=== PATIENT | female | born 1990 | race Caucasian/White ===

== ENCOUNTER 2018-09-13 23:15 | Outpatient (CLI) | payer MEDICAID ==
[2018-09-14] MEDS: ACETAMINOPHEN 325 MG TAB PO (00:47)
[2018-09-14 01:24] LABS: ADD UMIC YES; UR ASCORBIC ACID NEGATIVE (NEGATIVE); UR BACTERIA MANY /HPF (NONE SEEN); UR BILIRUBIN (Dip) NEGATIVE (NEGATIVE); UR BLOOD (Dip) NEGATIVE (NEGATIVE); UR CLARITY CLOUDY (CLEAR); UR COLOR YELLOW (YELLOW); UR GLUCOSE (Dip) NEGATIVE (NEGATIVE); UR KETONES (Dip) NEGATIVE (NEGATIVE); UR LEUKOCYTE ESTERASE (Dip) 3+ Leu/ul (NEGATIVE); UR NITRITE (Dip) NEGATIVE (NEGATIVE); UR RBC 19 /HPF (0-5); UR SPECIFIC GRAVITY (Dip) 1.012 (1.003-1.030); UR SQUAMOUS EPITHELIAL CELL MANY /HPF (FEW); UR TOTAL PROTEIN (Dip) NEGATIVE (NEGATIVE); UR UROBILINOGEN (Dip) NEGATIVE (NEGATIVE); UR WBC 46 /HPF (0-5)
== END 2018-09-14 03:13 | disposition home or self-care (01) ==
LOC: OBT 23:15 → L-D 23:15 → OBT 09-14 03:13
DX: O9A.312 Physical abuse complicating pregnancy, second trimester (principal); Z3A.25 25 weeks gestation of pregnancy; Y07.03 Male partner, perpetrator of maltreatment and neglect
CPT/HCPCS: 36415; 76815; 76817; 81001; 87591

== ENCOUNTER 2018-12-13 12:35 | Inpatient (IN) | payer MEDICAID ==
[2018-12-13] MEDS ORDERED: MISOPROSTOL 200 MCG TAB PR (14:00)
[2018-12-13] MEDS ORDERED: CARBOPROST 250 MCG INJ IM (14:00)
[2018-12-13] MEDS ORDERED: IBUPROFEN 600 MG TAB PO (14:00)
[2018-12-13] MEDS ORDERED: BUTORPHANOL 2 MG INJ IV (14:00)
[2018-12-13] MEDS ORDERED: OXYTOCIN 30 UNITS/LR 500 ML IV ×2 (14:00)
[2018-12-13] MEDS ORDERED: METHYLERGONOVINE 0.2 MG INJ IM (14:00)
[2018-12-13] MEDS ORDERED: LIDOCAINE 1% (MPF) 30 ML INJ INJ (14:00)
[2018-12-13 14:21] LABS: ADD MAN DIFF? NO
[2018-12-13 14:24] LABS: WHITE BLOOD COUNT 15.2 10^3/ul (4.8-10.8)
[2018-12-13 14:24] LABS: BASOPHILS % 0.3 % (0.0-2.0); EOSINOPHILS # 0.2 10^3/ul (0.0-0.5); EOSINOPHILS % 1.4 % (0.0-7.0); HEMATOCRIT 40.3 % (37.0-47.0); HEMOGLOBIN 13.3 g/dl (12.0-16.0); LYMPHOCYTES % 6.3 % (15.0-51.0); MEAN CORPUSCULAR HEMOGLOBIN 31.4 pg (29.0-33.0); MEAN PLATELET VOLUME 12.6 fl (7.4-10.4); MONOCYTE # 1.4 10^3/ul (0.3-0.9); MONOCYTES % 9.4 % (0.0-11.0); NEUTROPHIL # 12.5 10^3/ul (1.6-7.5); NEUTROPHILS % 81.9 % (39.0-77.0); PLATELET COUNT 203 10^3/UL (140-415); RED BLOOD COUNT 4.24 10^6/ul (4.20-5.40); RED CELL DISTRIBUTION WIDTH 13.5 % (11.5-14.5)
[2018-12-13 14:42] LABS: PARTIAL THROMBOPLASTIN TIME 29.8 Sec (23.0-35.0)
[2018-12-13 14:57] LABS: PROTIME 56.4 Sec (11.9-14.9); PT RATIO 4.4
[2018-12-13] MEDS: LACTATED RINGER'S 1,000 ML IV ×3 (15:03→16:07)
[2018-12-13 15:05] LABS: INR 6.45
[2018-12-13 15:13] LABS: HEPATITIS B SURFACE ANTIGEN NEGATIVE (NEGATIVE)
[2018-12-13] MEDS ORDERED: ZOLPIDEM 5 MG TAB PO (16:30)
[2018-12-13] MEDS ORDERED: ONDANSETRON 4 MG INJ IV (16:30)
[2018-12-13] MEDS ORDERED: HYDROmorphONE 0.5 MG/0.5 ML SYG IV ×2 (16:30)
[2018-12-13] MEDS ORDERED: NALOXONE (0.4 MG/ML) INJ IV (16:30)
[2018-12-13] MEDS ORDERED: KETOROLAC 30 MG INJ IV (16:30)
[2018-12-13] MEDS ORDERED: DIPHENHYDRAMINE 50 MG INJ IV (16:30)
[2018-12-13] MEDS: AMPICILLIN 1 GM/NS (PMX) 50 ML IV (18:00)
[2018-12-13 19:46] LABS: RAPID PLASMA REAGIN NONREACTIVE (NR)
[2018-12-13] MEDS: AMPICILLIN 2 GM/NS (PMX) 100 ML IV (20:19)
[2018-12-13] MEDS: FENTAnyl 2MCG/ML-ROPIV 0.2% 100 ML BAG EPI (22:57)
[2018-12-14] MEDS: OXYTOCIN 30 UNITS/LR 500 ML IV ×2 (02:40→02:56)
[2018-12-14] MEDS: LACTATED RINGER'S 1,000 ML IV* (02:40)
[2018-12-14] MEDS ORDERED: WITCH HAZEL/GLYCERIN PAD PR (03:00)
[2018-12-14] MEDS ORDERED: HYDROCODONE/APAP (5/325) TAB PO (03:00)
[2018-12-14] MEDS ORDERED: CARBOPROST 250 MCG INJ IM (03:00)
[2018-12-14] MEDS ORDERED: DIBUCAINE 1% 30 GM OINT TOP (03:00)
[2018-12-14] MEDS ORDERED: OXYTOCIN 30 UNITS/LR 500 ML IV (03:00)
[2018-12-14] MEDS ORDERED: MISOPROSTOL 200 MCG TAB PR (03:00)
[2018-12-14] MEDS ORDERED: LANOLIN HPA 1 PKT TOP (03:00)
[2018-12-14] MEDS ORDERED: METHYLERGONOVINE 0.2 MG INJ IM (03:00)
[2018-12-14] MEDS ORDERED: BENZOCAINE 20% 56 ML SPRAY TOP (03:00)
[2018-12-14] MEDS: IBUPROFEN 600 MG TAB PO ×4 (05:13→23:43)
[2018-12-15] MEDS: IBUPROFEN 600 MG TAB PO ×2 (06:00→11:58)
[2018-12-15 06:43] LABS: ADD MAN DIFF? NO
[2018-12-15 06:48] LABS: BASOPHIL # 0.1 10^3/ul (0.0-0.1); BASOPHILS % 0.3 % (0.0-2.0); EOSINOPHILS # 0.3 10^3/ul (0.0-0.5); EOSINOPHILS % 1.9 % (0.0-7.0); HEMATOCRIT 35.7 % (37.0-47.0); HEMOGLOBIN 11.5 g/dl (12.0-16.0); LYMPHOCYTES # 1.7 10^3/ul (0.8-2.9); LYMPHOCYTES % 9.1 % (15.0-51.0); MEAN CORPUSCULAR HEMOGLOBIN 31.6 pg (29.0-33.0); MEAN CORPUSCULAR HGB CONC 32.2 g/dl (32.0-37.0); MEAN CORPUSCULAR VOLUME 98.1 fl (82.0-101.0); MEAN PLATELET VOLUME 11.7 fl (7.4-10.4); MONOCYTE # 1.5 10^3/ul (0.3-0.9); NEUTROPHIL # 14.7 10^3/ul (1.6-7.5); NEUTROPHILS % 79.9 % (39.0-77.0); PLATELET COUNT 183 10^3/UL (140-415); RED BLOOD COUNT 3.64 10^6/ul (4.20-5.40); RED CELL DISTRIBUTION WIDTH 14.1 % (11.5-14.5)
[2018-12-15 06:48] LABS: WHITE BLOOD COUNT 18.3 10^3/ul (4.8-10.8)
[2018-12-16] MEDS ORDERED: DIPHTH/TET/ACEL PERTUSS (ADULT) 0.5 ML VIAL IM* (09:00)
== END 2018-12-15 15:05 | disposition home or self-care (01) | DRG 807 ==
LOC: OBT 12:35 → L-D 12-14 02:51 → PP1 12-14 04:39 → OBT 14:14 → L-D 13:50
PROVIDERS: Obstetrics & Gynecology
PROC: 10E0XZZ Delivery of Products of Conception, External Approach (ICD-10-PCS; principal; 2018-12-14)
PROC: 0HQ9XZZ Repair Perineum Skin, External Approach (ICD-10-PCS; 2018-12-14)
DX: O77.0 Labor and delivery complicated by meconium in amniotic fluid (principal); Z37.0 Single live birth; O70.0 First degree perineal laceration during delivery; Z3A.38 38 weeks gestation of pregnancy
CPT/HCPCS: 62319; 76815; 76818; 85025; 85610; 85730; 86592; 86850; 86900; 86901; 87340; 99464

== ENCOUNTER 2019-04-01 15:28 | Emergency (ER) | payer OTHER, MEDICAID ==
[2019-04-01] MEDS: LIDOCAINE 1% (MPF) 5 ML VIAL INJ (16:34)
[2019-04-01] MEDS: CEFTRIAXONE 1 GM INJ IM (16:34)
== END 2019-04-01 16:57 | disposition home or self-care (01) ==
LOC: FTE 16:57
DX: S51.851A Open bite of right forearm, initial encounter (principal); W55.01XA Bitten by cat, initial encounter; Y92.9 Unspecified place or not applicable
CPT/HCPCS: 96372; 99284-25